=== PATIENT | male | born 1950 | race Caucasian/White ===

== ENCOUNTER 2019-05-26 15:17 | Outpatient (RCR) | payer MEDICARE, OTHER ==
[~2019-05-26 15:17] MED LIST: FUROSEMIDE40 MG PO; GLYBURIDE5 MG PO; MULTIVITAMIN PO; PENTOXIFYLLINE400 MG PO; SPIRONOLACTONE50 MG PO; VITAMIN B-1001 EACH PO; ZEGERID PO
== END 2019-06-13 ==
LOC: PT 15:17
PROVIDERS: ATTEND Neurological Surgery
DX: M51.16 Intervertebral disc disorders with radiculopathy, lumbar region (principal); M54.5 Low back pain; M62.81 Muscle weakness (generalized); R29.3 Abnormal posture; M53.86 Other specified dorsopathies, lumbar region